=== PATIENT | female | born 1975 | race Caucasian/White ===

== ENCOUNTER 2016-12-17 13:17 | Emergency (ER) | payer SELFPAY ==
[~2016-12-17] VITALS: Ht 167.6 cm; Wt 65.8 kg
[2016-12-17 13:17] VITALS: BP 130/78
--- NOTE | 2016-12-17 13:45 | NUR ---
[facility]; the patient denies being depressed; she appears anxious on assessment
--- NOTE | 2016-12-17 13:56 | NUR ---
the patient refused urine sample collection.
--- NOTE | 2016-12-17 13:59 | NUR ---
the patient was called to be bedded for a room; she is no longer at the chair
--- NOTE | 2016-12-17 13:59 | NUR ---
tried to find the patient at the waiting room - [email or web address]
--- NOTE | 2016-12-17 14:01 | NUR ---
the patient was found - at the waiting area.
--- NOTE | 2016-12-17 14:01 | NUR ---
awaiting for MD to see
--- NOTE | 2016-12-17 14:01 | NUR ---
no acute distress - she is on the phone - smiling. No signs of depressive moods
== END 2016-12-17 15:45 | disposition left against medical advice (07) ==
LOC: ER 13:19
DX: Z53.20 Procedure and treatment not carried out because of patient's decision for unspecified reasons (principal)
CPT/HCPCS: 99283; A4606; Z7610